=== PATIENT | female | born 1980 | race Caucasian/White ===

== ENCOUNTER 2016-09-30 12:08 | Observation (INO) | payer BC ==
[~2016-09-30 12:08] MED LIST: BACITRACIN 50,000 UNITS/10 ML SYR IRR ONE; SURGIFLO MATRIX KIT WITH THROMBIN TP ONE; THROMBIN (BOVINE) 20,000 UNIT VIAL TP ONE
[2016-09-30] MEDS ORDERED: ceFAZolin 2 GM/DEXTROSE 100 ML IV ONE (12:42)
[2016-09-30] MEDS ORDERED: LR 1,000 ML IV ONE (12:46)
[2016-09-30] MEDS ORDERED: LIDOCAINE 1% 2 ML INJ ID PRN (12:46)
--- NOTE | 2016-09-30 13:43 | ECHO ---
[id number] + + [id number] : : [place] [address] : : [phone] + + Adult Echocardiographic Report + + :Name: NEMESIO REN Date: 09/30/2016 01:08 PM : : Hospital Admission Number: [id number] Location: Pre Surgery 13: :: 1980 Gender: Female Height: 66 in : :Age: 36 yrs Race: WH Weight: 236 lb : :Reason For Study: Eval LV Fx : : BSA: 2.1 meters2 : :History: Pre Surgery Clearance, Hx of Fibromyalgia : + + MMode/2D Measurements \T\ Calculations IVSd: 0.94 cm LVIDd: 4.0 cm FS: 38.6 % Ao root diam: 2.5 cm LVPWd: 1.0 cm LVIDs: 2.5 cm EDV(Teich): 70.8 ml ACS: 2.0 cm ESV(Teich): 21.6 ml EF(Teich): 69.4 % Normal Measurement Values: + + :LVIDd (3.5-5.7cm) IVSd (0.6-1.1cm) LVPWd (0.6-1.1cm) Aortic Root (2.0-3.7cm)Left Atrium (1.5-4.0cm): :LV Vol(d) (76-115ml) LV Vol(s) (29-48ml) Ejec Fraction (50-65%)PV Kenneth (0.6- 1.2m/s) TV Kenneth (0.4-1.0m/s) : :MV E Kenneth (0.8-1.0m/s)MV A Kenneth (0.3-1.0m/s)LVOT Kenneth (0.7-1.2m/s) Asc Ao Kenneth ( 0.9-1.8m/s) : + + Doppler Measurements \T\ Calculations MV E max kenneth: Ao V2 max: LV V1 max: PA V2 max: 83.9 cm/sec 176.5 cm/sec 112.0 cm/sec 105.9 cm/sec MV A max kenneth: Ao max PG: LV V1 max PG: PA max P.1 cm/sec 12.5 mmHg 5.0 mmHg 4.5 mmHg MV E/A: 1.2 Left Ventricle The left ventricle is normal in size and function. There is normal left ventricular wall thickness. The left ventricular ejection fraction is normal. Ejection Fraction = 69%. The left ventricular wall motion is normal. Right Ventricle The right ventricle is normal in size and function. Atria The left atrial size is normal. Right atrial size is normal. Mitral Valve The mitral valve is normal in structure and function. There is no mitral valve stenosis. There is no mitral regurgitation noted. Tricuspid Valve Normal tricuspid valve. No tricuspid regurgitation. Aortic Valve The aortic valve is normal in structure and function. There is no aortic stenosis. There is no aortic insufficiency. Pulmonic Valve The pulmonic valve is normal in structure and function. There is no pulmonic valvular regurgitation. Great Vessels The aortic root is normal size. Pericardium/Pleural There is no pericardial effusion. Conclusion A complete two-dimensional transthoracic echocardiogram was performed (2D, M-mode, Doppler and color flow Doppler). The left ventricle is normal in size and function. The left ventricular ejection fraction is normal. Ejection Fraction = 69%. The left ventricular wall motion is normal. The right ventricle is normal in size and function. The left atrial size is normal. The mitral valve is normal in structure and function. Normal tricuspid valve The aortic valve is normal in structure and function. The pulmonic valve is normal in structure and function. The aortic root is normal size. There is no pericardial effusion. No prior echo Final Reading Physician: Dr Abigail Petit electronically signed on 09/30/2016 01:41 PM Ordering Physician: Rashawn JOHNSON Performed By: Martin Nolasco, CS
[2016-09-30] MEDS ORDERED: MIDAZOLAM 2 MG/2 ML VIAL IVP ONE (14:26)
--- NOTE | 2016-09-30 14:30 | PDANEPAE ---
ANE History of Present Illness cervical degenerative disease ANE Past Medical History - Cardiovascular History Hx Hypertension: No Hx Arrhythmias: No Hx Chest Pain: No Hx Coronary Artery / Peripheral Vascular Disease: No Hx CHF / Valvular Disease: No Hx Palpitations: Yes Cardiovascular History Comment: LIGHT HEADED,DIZZINESS AT TIMES - Pulmonary History Hx COPD: No Hx Asthma/Reactive Airway Disease: No Hx Recent Upper Respiratory Infection: No Hx Oxygen in Use at Home: No Hx Sleep Apnea: Yes Sleep Apnea Screening Result - Last Documented: Positive - Neurologic History Hx Cerebrovascular Accident: No Hx Seizures: No Hx Dementia: No Neurologic History Comment: MIGRAINES. NEUROPATHY HANDS & FEET - Endocrine History Hx Diabetes: Yes Hypothyroid: No Hyperthyroid: No Obesity: yes Endocrine History Comment: THYROID NODULES - Renal History Hx Renal Disorders: No - Liver History Hx Hepatic Disorders: Yes Hepatic History Comment: CHOLECYSTECTOMY - Neurological & Psychiatric Hx Hx Neurological and Psychiatric Disorders: Yes Neurological / Psychiatric History Comment: ANXIETY/DEPRESSION - Cancer History Hx Cancer: No - Congenital Disorder History Hx Congenital Disorders: No - GI History Hx Gastrointestinal Disorders: No - Other Health History Other Health History: FIBROMYALGIA. CHRONIC PAIN - Chronic Pain History Chronic Pain: Yes (ALL OVER) - Surgical History Prior Surgeries: CHOLECYSTECTOMY ANE Review of Systems - Exercise capacity METS (RN): 3 METS - Systems Constitutional: Reports: no symptoms EENMT: Reports: no symptoms Cardiac: Reports: lightheadedness, palpitations Respiratory: Reports: no symptoms Gastrointestinal: Reports: no symptoms Neurological: Reports: anxiety ANE Patient History - Allergies Allergies/Adverse Reactions: ethinyl estradiol [From NuvaRing] Allergy (Verified 09/24/16 12:10) ABD PAIN etonogestrel [From NuvaRing] Allergy (Verified 09/24/16 12:10) ABD PAIN .CORTICOSTEROIDS Allergy (Uncoded 09/24/16 12:10) RASH & BOILS - Home Medications Home Medications: Buprenorphine [Butrans 20 mcg/hr] 1 each TD TU 09/24/16 [Last Taken Unknown] Ergocalciferol [Vitamin D2 (*)] 50,000 unit PO TH 09/24/16 [Last Taken Unknown] Gabapentin [Neurontin 300 MG (*)] 900 mg PO TID 09/24/16 [Last Taken Unknown] HYDROcodone/APAP 10/325 [[place] 10/325 (*)] 1 tab PO Q6HRS PRN 09/24/16 [Last Taken Unknown] LORazepam [Ativan (*)] 0.5 mg PO BID 09/24/16 [Last Taken Unknown] Propranolol HCl [Inderal 20mg (*)] 20 mg PO BID 09/24/16 [Last Taken Unknown] Sertraline HCl [Zoloft 100mg (*)] 100 mg PO BID 09/24/16 [Last Taken Unknown] Venlafaxine HCl [Venlafaxine 75MG (*)] 75 mg PO DAILY 09/24/16 [Last Taken Unknown] tiZANidine HCL [Zanaflex] 4 mg PO Q6HRS PRN 09/24/16 [Last Taken Unknown] - NPO status NPO Since - Liquids (Date): 09/30/16 NPO Since - Liquids (Time): 10:18 NPO Since - Solids (Date): 09/29/16 NPO Since - Solids (Time): 21:30 - Smoking Hx Smoking Status: Heavy smoker - Family Anes Hx Family Hx Anesthesia Complications: NEG ANE Labs/Vital Signs - Vital Signs Blood Pressure: 141/75 Heart Rate: 75 Respiratory Rate: 18 O2 Sat (%): 93 Height: 167.64 cm Weight: 107.048 kg ANE Physical Exam - Airway Mallampati Score: Class 3 Mouth exam: normal dental/mouth exam, small mouth opening - Pulmonary Pulmonary: no respiratory distress, no rales or rhonchi, clear to auscultation - Cardiovascular Cardiovascular: regular rate and rhythym - ASA Status ASA Status: II ANE Anesthesia Plan Anesthesia Plan: general endotracheal anesthesia Specialized Airway: video laryngoscope
--- NOTE | 2016-09-30 14:37 | PDHPUP ---
History & Physical Update H&P update statement: This history and physical update is based on an assessment of the patient which was completed after admission or registration (within 24 hours), but prior to the surgery/procedure. H&P update: H&P reviewed & patient examined, no change in patient's condition since H&P completed (Patient marked and consents signed.)
[2016-09-30] MEDS ORDERED: PROPOFOL 200 MG/20 ML VIAL ONE (14:41)
[2016-09-30] MEDS ORDERED: fentaNYL 100 MCG/2 ML INJ ONE ×3 (14:41→16:54)
[2016-09-30] MEDS ORDERED: ROCURONIUM 50 MG/5 ML VIAL ONE (14:43)
[2016-09-30] MEDS ORDERED: LIDOCAINE 2% 5 ML SDV ONE (14:43)
[2016-09-30] MEDS ORDERED: NALOXONE HCL 0.4 MG/ML INJ IVP PRN (15:34)
[2016-09-30] MEDS ORDERED: HYDROCODONE/APAP 5/325 TAB PO PRN (15:34)
[2016-09-30] MEDS ORDERED: LABETALOL HCL 50 MG/10 ML SYR IVP PRN (15:34)
[2016-09-30] MEDS ORDERED: HYDROmorphONE/DILAUDID 1 MG/ML SYR IVP PRN (15:34)
[2016-09-30] MEDS ORDERED: ONDANSETRON 4 MG/2 ML VIAL IVP PRN ×2 (15:34→16:32)
[2016-09-30] MEDS ORDERED: PROMETHAZINE HCL 25 MG/ML INJ IVP PRN (15:34)
[2016-09-30] MEDS ORDERED: OXYCODONE/APAP 5/325 TAB PO PRN (15:34)
[2016-09-30] MEDS ORDERED: ACETAMINOPHEN 500 MG TAB PO PRN (15:34)
[2016-09-30] MEDS ORDERED: fentaNYL 100 MCG/2 ML INJ IVP PRN (15:34)
[2016-09-30] MEDS ORDERED: D5W LR 500 ML IV PRN (15:34)
[2016-09-30] MEDS ORDERED: NEOSTIGMINE METHYLSULFATE 5 MG/5 ML SYR ONE (16:10)
[2016-09-30] MEDS ORDERED: GLYCOPYRROLATE 0.2 MG/1 ML VIAL ONE ×2 (16:10)
[2016-09-30] MEDS ORDERED: ONDANSETRON 4 MG/2 ML VIAL ONE (16:10)
[2016-09-30] MEDS ORDERED: MIDAZOLAM 2 MG/2 ML VIAL ONE (16:30)
[2016-09-30] MEDS ORDERED: HYDROCODONE/APAP 10/325 TAB PO PRN (16:31)
[2016-09-30] MEDS ORDERED: ONDANSETRON DISINTEGRATING 4 MG TAB PO PRN (16:32)
[2016-09-30] MEDS ORDERED: MAGNESIUM HYDROXIDE 30 ML UDCUP PO PRN (16:32)
[2016-09-30] MEDS ORDERED: LACTULOSE 20 GM/30 ML UDCUP PO PRN (16:32)
[2016-09-30] MEDS ORDERED: METHOCARBAMOL 750 MG TAB PO PRN (16:32)
[2016-09-30] MEDS ORDERED: POLYETHYLENE GLYCOL 3350 17 GM PKT PO PRN (16:32)
[2016-09-30] MEDS ORDERED: diphenhydrAMINE 25 MG CAP PO PRN (16:32)
[2016-09-30] MEDS ORDERED: BISACODYL 10 MG SUPP PR PRN (16:32)
[2016-09-30] MEDS ORDERED: DIAZEPAM 10 MG/2 ML SYR IVP PRN (16:32)
[2016-09-30] MEDS ORDERED: BUPRENORPHINE TD SCH (16:45)
[2016-09-30] MEDS ORDERED: NS W/ 20 KCl/L 1,000 ML IV SCH (16:45)
--- NOTE | 2016-09-30 16:50 | POSTOPPROG ---
Post Op Note Date of Operation: 09/30/16 Surgeon: Aniceto Pena [place] Driver: Erika Davis PA-C Anesthesiologist: Rosey Anesthesia: GET(General Endotracheal) Pre-op Diagnosis: cervical stenosis Post-op Diagnosis: same Indication: cord compression Procedure: C56 ACDF Findings: Please see dictation Inf/Abcess present in the surg proc area at time of surgery?: No Depth: Organ Space EBL: Minimal Complications: none Specimen(s): none PA Addendum - Addendum .: S: Pt awake in PACU, c/o anterior neck pain O: AAOx3 NAD VSS MAEx4 Motor 5/5 BUE/BLE +LT Incision cdi A: 36 yo F s/p C56 ACDF P: PT/OT/HEAD START COORDINATOR Post op xrays spine precautions no collar TEDs, SCDS, lovenox POD#3 Call NS with any issues
[2016-09-30] MEDS ORDERED: HYDROmorphONE/DILAUDID 1 MG/ML SYR ONE (16:54)
[2016-09-30] MEDS: fentaNYL 100 MCG/2 ML INJ IVP PRN ×2 (16:56→17:04)
[2016-09-30] MEDS: HYDROmorphONE/DILAUDID 1 MG/ML SYR IVP PRN ×2 (16:59→17:12)
[2016-09-30] MEDS ORDERED: PROMETHAZINE HCL 25 MG/ML INJ ONE (17:08)
[2016-09-30] MEDS: HYDROCODONE/APAP 10/325 TAB PO PRN (18:48)
[2016-09-30] MEDS: FAMOTIDINE 20 MG TAB PO SCH (21:55)
[2016-09-30] MEDS: PROPRANOLOL HCL 20 MG TAB PO SCH (21:56)
[2016-09-30] MEDS: LORazepam 0.5 MG TAB PO SCH (21:56)
[2016-09-30] MEDS: SENNOSIDES/DOCUSATE SODIUM TAB PO SCH (21:56)
[2016-09-30] MEDS: GABAPENTIN 300 MG CAP PO SCH (21:56)
[2016-09-30] MEDS: SERTRALINE HCL 100 MG TAB PO SCH (21:56)
[2016-10-01 00:21] VITALS: TEMP 98.2
[2016-10-01] MEDS: HYDROCODONE/APAP 10/325 TAB PO PRN ×3 (00:27→13:10)
--- NOTE | 2016-10-01 04:02 | GOP ---
[f rep st] OPERATIVE REPORT DATE OF OPERATION: 09/30/2016 SURGEON: Aniceto Pena MD FINANCIAL SECRETARY: Arlet Davis, HARSHAD. ANESTHESIA: General. PREOPERATIVE DIAGNOSIS: 1. C5-C6 cervical stenosis with myelopathy. 2. Cervicalgia and radiculopathy. 3. Treatment refractory to nonoperative intervention. POSTOPERATIVE DIAGNOSIS: 1. C5-C6 cervical stenosis with myelopathy. 2. Cervicalgia and radiculopathy. 3. Treatment refractory to nonoperative intervention. PROCEDURE PERFORMED: 1. Anterior arthrodesis with approach to C5 and C6. 2. C5-C6 diskectomy with bilateral foraminotomies, osteophytectomies, and interbody fusion using a 6 x 14 x 11 mm titanium coated PEEK cage with morselized autograft and allograft. 3. Anterior cervical fusion with a 17 mm Medtronic ZEVO plate. 4. Use of intraoperative fluoroscopy, less than 1 hour physician time. 5. Use of neuromonitoring. 6. Use of the operating microscope. FINDINGS: per imaging with a large subligamentous disc herniation and cord compression SPECIMENS: None. ESTIMATED BLOOD LOSS: 5 mL. INDICATIONS: The patient is a 36-year-old woman who presented to my office with progressive weakness of the bilateral upper and lower extremities. She had evidence of a large disk herniation at C5-C6 with spinal cord compression. After discussion of the risks, benefits, and treatment alternatives and after failing nonoperative interventions, we decided to proceed forth with surgery as described above. DESCRIPTION OF PROCEDURE: Patient was brought to the operating theater and underwent general endotracheal anesthesia without complication. She had Venodynes, NATALIE hose, and appropriate lines placed by Anesthesia. Her head was maintained supine on the operating room table in slight extension. Using lateral fluoroscopy and a spinal needle, we picked our entry point to the C5 and C6 levels. This was marked as a transverse incision on the right side of the neck. This area was prepped and draped in usual sterile surgical fashion. A time-out was completed per protocol. The patient received antibiotics within 1 hour of incision. The incision was taken down initially with the scalpel blade and then, using the monopolar, taken down through the subcutaneous tissues to the level of the platysma. The platysma was over-mined in cranial and caudal directions. We over-mined the platysma in the cranial and caudal directions and a Weitlaner used to maintain our exposure. We opened the fibers of the platysma cranially and caudally and using both sharp and blunt dissection, we then traveled in a plane medial to the carotid sheath and lateral to the esophagus and trachea to reach the prevertebral fascia. We placed a bayonetted needle into the disk space of C5-C6 and confirmed the level using lateral fluoroscopy. At this point , we elevated the longus colli muscle from the anterior vertebral bodies of C5 at C6 and deep retractors placed to maintain our exposure. We placed a Barrett pin into the vertebral body of C5 and C6 and placed C5-C6 into mild distraction. We completed a C5-C6 diskectomy with bilateral foraminotomies and osteophytectomies. We were able to tease out 2 very large free fragments of disc material and a herniation from the subligamentous space and from with in the right foramen. Once we felt that everything was well decompressed, we prepared the cartilaginous endplates and measured interbody space. We placed a 6 x 14 x 11 mm titanium coated PEEK cage with morselized autograft and allograft into the C5-6 disk space. We removed the Barrett pins and drilled down the anterior osteophytes. We secured a 17 mm Medtronic ZEVO plate onto the vertebral bodies of C5 and C6. AP and lateral x-rays demonstrated good placement of the hardware. We obtained hemostasis with bipolar, and the wound was irrigated copiously with bacitracin irrigation. We then closed the wound in multiple layers using Vicryl sutures for the deep layers and Dermabond for the skin. The patient's wounds were dressed sterilely. She was awakened, extubated, and taken to the recovery room in stable condition. There were no complications and no noted changes on neuromonitoring throughout the procedure. COMPLICATIONS: None. /[id number]/MODL MTDD
[2016-10-01 08:11] VITALS: BP 118/74; RESP 15
[2016-10-01] MEDS: GABAPENTIN 300 MG CAP PO SCH (08:42)
[2016-10-01] MEDS: LORazepam 0.5 MG TAB PO SCH (08:42)
[2016-10-01] MEDS: SENNOSIDES/DOCUSATE SODIUM TAB PO SCH (08:43)
[2016-10-01] MEDS: PROPRANOLOL HCL 20 MG TAB PO SCH (08:43)
[2016-10-01] MEDS: SERTRALINE HCL 100 MG TAB PO SCH (08:43)
[2016-10-01] MEDS: FAMOTIDINE 20 MG TAB PO SCH (08:45)
--- NOTE | 2016-10-01 08:46 | SOAPPROG ---
SOAP Progress Note Assessment/Plan: Assessment: 36 yo F POD #1 C5/6 ACDF Plan: stable and doing well post op x-rays show good position of the hardware PT/OT dc home today please call with neuro changes discussed with DR Pena 10/01/16 08:44 Subjective: some neck pain, no arm pain, no weakness/paresthesias. Objective: Vital Signs Temp Pulse Resp BP Pulse Ox 36.8 C 74 15 118/74 92 10/01/16 08:00 10/01/16 08:00 10/01/16 08:00 10/01/16 08:00 10/01/16 08:00 09/30/16 10/01/16 10/02/16 05:59 05:59 05:59 Intake Total 2255 Output Total 1910 Balance 345 AAOX4, +FC PERRL, EOMI, no facial droop 5/5 + light touch C/D/I ICD10 Worksheet Patient Problems: Problems Problem Status Onset Fusion of spine of cervical region Acute - ICD10 Problem Qualifiers (1) Fusion of spine of cervical region
[2016-10-01] MEDS ORDERED: VENLAFAXINE HCL 75 MG TAB PO SCH (09:00)
[2016-10-01 13:56] VITALS: PULSE 80; O2SAT 93
[2016-10-03] MEDS ORDERED: ENOXAPARIN 40 MG/0.4 ML SYR SC SCH (09:00)
== END 2016-10-01 14:24 | disposition home or self-care (01) ==
LOC: F3N 12:08 → EDSTATUS 13:45 → F3N 17:39
PROVIDERS: ADMIT Neurological Surgery; ATTEND Neurological Surgery
PROC: 4A10X4G Monitoring of Central Nervous Electrical Activity, Intraoperative, External Approach (ICD-10-PCS; principal; 2016-09-30 14:15)
PROC: 0RT30ZZ Resection of Cervical Vertebral Disc, Open Approach (ICD-10-PCS; principal; 2016-09-30 14:15)
PROC: 0RG10A0 Fusion of Cervical Vertebral Joint with Interbody Fusion Device, Anterior Approach, Anterior Column, Open Approach (ICD-10-PCS; principal; 2016-09-30 14:15)
DX: M50.022 Cervical disc disorder at C5-C6 level with myelopathy (principal)
CPT/HCPCS: 22551; 22853; 72040; 76001; 92610; 93306; 97161; 97165; G0378; C1713; J0690; J1170; J2250; J2405; J2550; J2704; J2710; J3010

== ENCOUNTER → 2016-11-13 | Outpatient (CLI) | payer BC | LOC: FIMAGING 12:06 | PROVIDERS: ATTEND Physician Assistant Surgical | DX: M47.12 Other spondylosis with myelopathy, cervical region (principal); Z98.1 Arthrodesis status ==